=== PATIENT | female | born 1960 | race Caucasian/White ===

== ENCOUNTER 2018-11-05 13:41 | Inpatient (IN) | payer SELFPAY ==
[2018-11-05] VITALS (11 sets, daily range): BP systolic 107–185; BP diastolic 57–96
[~2018-11-05] VITALS: Ht 167.6 cm; Wt 65.1 kg
--- NOTE | 2018-11-05 16:20 | NUR ---
DR VIDAL HERE SPEAKING WITH PTS NEW ORDERS NOTED
--- NOTE | 2018-11-05 16:45 | NUR ---
DR GIL CONSULTED HERE TO SEE PT. JEFFERY ALSO SPEAKING WITH PTS
[2018-11-05 17:52] LABS: CALCIUM 7.5 mg/dL (8.5-10.1); CARBON DIOXIDE 24.1 mmol/L (21.0-32.0); CREATININE - SERUM 1.7 mg/dL (0.6-1.3); POTASSIUM - SERUM 4.1 mmol/L (3.5-5.1)
--- NOTE | 2018-11-05 19:15 | NUR ---
REPORT RECEIVED CARE ASSUMED INITIAL SHIFT ASSESSMENT COMPLETED SEE FLOWSHEET. PT BEING MONITORED PER STANDARD ICU PROTOCOL WITH ALL ALARMS SET, VERIFIED AND AUDIBLE AT NURSES STATION. PT NOTED TO BE SUPPORTED PER MECHANICAL VENTILATION VIA ETT DIPROVAN FOR SEDATION. PT IS TOTAL CARE FOR ALL ADL'S WITH PILLOWS USED FOR SUPPORT, TO RELIEVE PRESSURE, ELEVATE ARMS AND FLOAT HEELS. IVF AND IV TUBING ARE ALL APPROPRIATELY LABELED. NS AT 125ML/HR TURNED TO KVO PER DR. GIL'S PROGRESS NOTE. BED IN LOW POSITION PT IS IN DIRECT VISION OF NURSES STATION.
--- NOTE | 2018-11-05 20:35 | NUR ---
LEAVING UNIT WITH PT VIA BED AND WITH RT AT BEDSIDE FOR CT SCAN. IN WAITING ROOM
--- NOTE | 2018-11-05 20:50 | NUR ---
RETURNED TO ROOM AND RECONNECTED PT TO MONITORS. BROUGHT BACK TO ROOM. EMEGENCY CONTACT INFORMATION OBTAINED AND SECURITY CODE ESTABLISHED.
--- NOTE | 2018-11-05 20:50 | NUR ---
CALLED TO CLARIFY ORDERS THAT PATIENT WAS NOT TO BE ON INSULIN GTT. CLEMENT OBRIEN CALLED BACK AND INFORMED OF PATIENT ANION GAP OF 17.00 AND POSITIVE FOR MODERATE HIGH KETONES. CLEMENT OBRIEN STATED TO KEEP THE ORDER OF HUMULIN R HIGH SLIDING SCALE ORDERED.
--- NOTE | 2018-11-05 22:27 | NUR ---
SPOKE WITH MICAH VAUGHAN FOR DR. VIDAL. CONFIRMED, PT WITH ELEVATED ANION GAP AND MODERATE KETONE-"TO FOLLOW INSULIN SLIDING SCALE" PER MICAH. ALSO DISCUSSED TRENDING ELEVATED BLOOD PRESSURE NOW AT 176/75 REPORTED TO MICAH NEW ORDERS RECEIVED AND REPEATED FOR APRESOLINE 10MG IV Q6 PRN SBP>170. NO OTHER ORDERS
--- NOTE | 2018-11-05 23:00 | NUR ---
OGT INSERTED X 1 ATTEMPT WITH PLACEMENT VERIFIED BY IMMEDIATE RETURN OF COFFEE GROUND SECRETIONS AND AIR BOLUS. PT ALSO WITH OLD BLOOD CLOT FROM MOUTH. OGT SECURED AND PLACED TO LIWS. APPROX 100CC OF RETURN. SEE FLOWSHEET FOR FURTHER REASSESSMENT.
--- NOTE | 2018-11-05 23:53 | NUR ---
SPOKE WITH MICAH VAUGHAN TO NOTIFY OF COFFEE GROUND EMESIS 100CC UPON PLACEMENT OF OGT AND ORAL CLOTS OF BLOOD. NEW ORDERS FOR CBC AND LFTS NOW AND TO CALL IF HGB<11. LAB CALLED AND NOTIFIED OF NEED FOR BLOOD DRAW
[2018-11-06] VITALS (35 sets, daily range): BP systolic 10–174; BP diastolic 53–96; BMI 23.4
[2018-11-06 00:07] LABS: HEMATOCRIT 38.7 % (36.0-48.0); HEMOGLOBIN 13.7 g/dL (12-16); LYMPHOCYTES 5.8 % (15-50); MCH 31.4 pg (26.0-34.0); MCHC 35.4 g/dL (31.0-37.0); MCV 88.6 fL (80.0-100.0); MEAN PLATELET VOLUME 8.8 fL (7.4-10.4); NEUTROPHILS 88.4 % (40-80); PLATELET COUNT 170 10x3/uL (130-400); RBC 4.37 10x6/uL (4.00-5.40); RDW 13.6 % (11.5-14.5); WBC 7.6 10x3/uL (4.8-10.8)
--- NOTE | 2018-11-06 00:30 | NUR ---
LABS REVIEWED NO ACTION NEEDED AT THIS TIME.
[2018-11-06 00:32] LABS: ALBUMIN 2.3 g/dL (3.4-5.0); BILIRUBIN - DIRECT 0.14 mg/dL (0.00-0.30); BILIRUBIN - INDIRECT 0.24 mg/dL (0.00-1.00); BILIRUBIN - TOTAL 0.38 mg/dL (0.2-1.3); PROTEIN - SERUM 5.7 g/dL (6.4-8.2)
--- NOTE | 2018-11-06 03:00 | NUR ---
SHIFT REASSESSMENT COMPLETED SEE FLOWSHEET. NO SIGNIFICANT CHANGES. VSS
[2018-11-06 04:31] LABS: BASOPHILS 0.1 % (0-2); EOSINOPHILS 0 % (0-7); HEMATOCRIT 37.1 % (36.0-48.0); IMMATURE GRANULOCYTES 0.1 % (0-5); LYMPHOCYTES 6.4 % (15-50); MCH 30.7 pg (26.0-34.0); MCV 87.7 fL (80.0-100.0); MEAN PLATELET VOLUME 9.8 fL (7.4-10.4); NEUTROPHILS 86.4 % (40-80); PLATELET COUNT 163 10x3/uL (130-400); RBC 4.23 10x6/uL (4.00-5.40); RDW 13.1 % (11.5-14.5); WBC 7.1 10x3/uL (4.8-10.8)
[2018-11-06 04:49] LABS: ALBUMIN 2.2 g/dL (3.4-5.0); ANION GAP 13.3 mmol/L (8-16); BILIRUBIN - TOTAL 0.36 mg/dL (0.2-1.3); CALCIUM 7.5 mg/dL (8.5-10.1); CARBON DIOXIDE 27.9 mmol/L (21.0-32.0); CREATININE - SERUM 1.5 mg/dL (0.6-1.3); MAGNESIUM - SERUM 1.7 mg/dL (1.8-2.4); PROTEIN - SERUM 5.4 g/dL (6.4-8.2); VANCOMYCIN - RANDOM 8.1 ug/mL (10.0-20.0)
[2018-11-06 04:51] LABS: POTASSIUM - SERUM 3.2 mmol/L (3.5-5.1)
--- NOTE | 2018-11-06 05:00 | NUR ---
MONITORING GLUCOSE CLOSELY SEE POC FLOWSHEET. F/C CARE DONE AND BOTTOM LINENS CHANGED. PT TOLERATED WELL.
--- NOTE | 2018-11-06 09:00 | NUR ---
SEDATION CONTINUE----SEE GRAPHIC
--- NOTE | 2018-11-06 11:00 | NUR ---
WEANING FROM VENT ATTEMPTED-----PROPOFOL TITARTED DOWN TO OFF --PT WILL NOT FOLLOW VERBAL COMMANDS
--- NOTE | 2018-11-06 13:00 | NUR ---
FAMILY AT UPDATE STATUS REPORT GIVEN VIA DR VIDAL
--- NOTE | 2018-11-06 17:00 | NUR ---
SEDATION CONTINUE ----SLIGHT AGITATED CONTINUE---CONTINUE NOT FOLLOWING VERBAL COMMANDS
--- NOTE | 2018-11-06 17:17 | MORECARE ---
CASE MANAGEMENT DISCHARGE SUMMARY PATIENT: WHITNEY JOHNS UNIT: [id number] ADM DATE: 11/05/18 AGE: 58 : 62 SEX: F ROOM/BED: D.2308 AUTHOR: LORIN PATTERSON PHYSICIAN: REFERRING PHYSICIAN: MAHSA VIDAL MD DATE OF SERVICE: 11/06/18 Discharge Plan Patient Name: WHITNEY JOHNS Facility: [facility]:[place] : 1960 Planned Disposition: Anticipated Discharge Date: Discharge Date: Expected LOS: Initial Reviewer: [email or web address] Initial Review Date: 11/05/2018 Generated: 11/06/18 6:17 pm Comments DCP- Discharge Planning Updated by [email or web address]: Ivana Amin on 11/06/18 4:[address] Patient on vent / sedated. No family available at this time.CM will continue to follow and assist as needed with discharge planning / needs. Patient Name: WHITNEY JOHNS Page 66611 at 1717 All edits/amendments must be made on the electronic document DICTATION DATE: 11/06/181715 DIGITAL FORENSICS EXAMINER: DAVID 11/06/181715 RPT#: [id number] DC DATE: STATUS: ADM IN [facility] [address] [place] [address] END OF REPORT
--- NOTE | 2018-11-06 17:57 | NUR ---
SPOUSE CALLED UPDATE STATUS GIVEN
--- NOTE | 2018-11-06 19:00 | NUR ---
REPORT RECEIVED CARE ASSUMED INITIAL SHIFT ASSESSMENT COMPLETED SEE FLOWSHEET. PT REMAINS ON MECHANICAL VENTILATION VIA ETT. DIPROVAN TITRATED FOR SEDATION. MONITORED PER STANDARD ICU PROTOCOL WITH ALL ALARMS SET, VERIFIED AND AUDIBLE AT NURSES STATION. OGT TO LIWS COFFEE GROUND GASTRIC CONTENTS IN TUBING. PT IS TOTAL CARE FOR ALL ADLS. VAP PROTOCOL BEING OBSERVED. DROPLET ISOLATION BEING OBSERVED.
--- NOTE | 2018-11-06 19:11 | NUR ---
SPOKE WITH DR. BARAHONA TO NOTIFY OF CONSULT THAT WAS WRITTEN IN H&P PER DR. VIDAL. DISCUSSED LABS AND ORDERS RECEIVED AND REPEATED TO VERIFY.
--- NOTE | 2018-11-06 19:40 | NUR ---
FSBS 20 REPEAT TEST 21. ORDERS PUT IN FOR STAT LAB AND LAB CALLED TO NOTIFY OF ORDERS. HYPOGLYCEMIC PROTOCOL FOLLOWED PER PROTOCOL. WILL MONITOR PER PROTOCOL
--- NOTE | 2018-11-06 20:30 | NUR ---
RECHECK FSBS AFTER FOLLOWING PROTOCOL TO VERIFY STILL TRENDING UP AND READING OF 57, HYPOGLYCEMIC PROTOCOL AGAIN FOLLOWED
--- NOTE | 2018-11-06 21:00 | NUR ---
NO VISITORS AT THIS TIME
--- NOTE | 2018-11-06 23:00 | NUR ---
PT AGGITATED SITTING UP IN BED LEANING HEAD DOWN AND REACHING FOR ETT. 1:1 WITH PT TO MAINTAIN SAFETY AND DIPROVAN INCREASED FOR EFFECT. FSBS CHECKED 57 RECHECKED TO VERIFY AND 60 HYPOGLYCEMIC PROTOCOL FOLLOWED SHIFT REASSESSMENT COMPLETED SEE FLOWSHEET.
[2018-11-07] VITALS (24 sets, daily range): BP systolic 106–168; BP diastolic 58–92
--- NOTE | 2018-11-07 01:00 | NUR ---
PT MORE CALM AT THIS TIME. TITRATED DIPROVAN FOR EFFECTIVNESS. F/C CARE DONE. VSS
--- NOTE | 2018-11-07 03:00 | NUR ---
SHIFT REASSESSMENT COMPLETED SEE FLOWSHEET.
--- NOTE | 2018-11-07 03:55 | NUR ---
FSBS 201 PT GIVEN PARTIAL DOSE INSULIN TO DUE TO RECENT HYPOGYLCEMIC RESULTS IN PAST 24 HOURS. WILL MONITOR
[2018-11-07 04:18] LABS: BASOPHILS 0.3 % (0-2); EOSINOPHILS 0.2 % (0-7); HEMOGLOBIN 13.4 g/dL (12-16); IMMATURE GRANULOCYTES 0.3 % (0-5); LYMPHOCYTES 17.7 % (15-50); MCH 31.6 pg (26.0-34.0); MCHC 35.3 g/dL (31.0-37.0); MCV 89.6 fL (80.0-100.0); MEAN PLATELET VOLUME 10.2 fL (7.4-10.4); MONOCYTES 4.9 % (2-11); NEUTROPHILS 76.6 % (40-80); RBC 4.24 10x6/uL (4.00-5.40); RDW 13.4 % (11.5-14.5); WBC 5.8 10x3/uL (4.8-10.8)
[2018-11-07 04:25] LABS: PLATELET COUNT 129 10x3/uL (130-400)
[2018-11-07 04:41] LABS: ALBUMIN 1.9 g/dL (3.4-5.0); ANION GAP 12.2 mmol/L (8-16); BILIRUBIN - TOTAL 0.48 mg/dL (0.2-1.3); CALCIUM 7.6 mg/dL (8.5-10.1); CARBON DIOXIDE 28.9 mmol/L (21.0-32.0); CREATININE - SERUM 1.2 mg/dL (0.6-1.3); POTASSIUM - SERUM 3.1 mmol/L (3.5-5.1); PROTEIN - SERUM 5.1 g/dL (6.4-8.2)
[2018-11-07 04:47] LABS: MAGNESIUM - SERUM 2.2 mg/dL (1.8-2.4)
--- NOTE | 2018-11-07 07:00 | NUR ---
ETT SECURE TO VENT. BILATERAL LUNG SOUNDS EQUAL. REPOSITIONED. RIGHT WRIST IV DC'S DUE TO HAND SWELLING. RIGHT AC IV INFUISNG WITH NS KVO FOR IVPB AND KCL RIDER. AND DIPIRIVAN AT 25 MCG/KG/MIN. JUST CUT IN HALF FOR CPAP TRAILS. TAYLOR CATH PATIENT DRAINING LISA URINE, WITH BLOODY STREAKS IN TUBING. DOES MOVE ALL EXTREMITITES TO PAINFUL SITMULI. DOES NOT OBEY COMMANDS. MONITOR ST. HEAD OF BED ELEVATED 30 DEGREES.
--- NOTE | 2018-11-07 09:00 | NUR ---
DIPRIVAN CUT BACK TO 15 MCG/KG/MIN. AWAKES UP EASILY DOES NOT OBEY COMMANDS. SITS UP MOVING ALL EXTERMITIES WITH GOOD STRENGTH. GOOD COUGH REFLEX.
--- NOTE | 2018-11-07 09:45 | NUR ---
DR. GIL HERE SUSANIRVAN TURNED OFF. ON CPAP ON VENT. GOOD RESP. RATE DEEP BREATHS ABOVE 350 TV
--- NOTE | 2018-11-07 10:30 | NUR ---
NO RESP DISTRESS. RESP RATE LESS THAN 30 TV 400-500.
--- NOTE | 2018-11-07 10:40 | NUR ---
EXTUBATED BY RESP. THERAPY. PLACED ON 4 LITERS NC. GOOD COUGH, RESP DEEP AND REGULAR. NO RESP DISTRESS. STILL NOT OBEYING COMMANDS. TURNING SELF FROM SIDE.
--- NOTE | 2018-11-07 10:51 | NUR ---
Nutrition follow-up: Pt just extubated NPO continues Labs reviewed Wt: 146# Pt in isolation for possible flu RDN following.
--- NOTE | 2018-11-07 11:20 | NUR ---
CONSTANTLY LOUDLY SAYING "AWAWAWAW". NOT OBEYING COMMANDS. OCC. WILL MAKE EYE CONTACT BUT NOT CONSISTANTLY. NOT ANSWERING QUESTIONS. TURNING SELF FROM SIDE TO SIDE. PULLING OXYGEN OUT, PULLING ON IV'S. RESTRAINTES REPLACED. DOES NOT ANSWER QUESTIONS. OCC WORDS UNDERSTOOD. MOM, BABY, ETC. PILLOW AROUND PATIENT REPOSITIONED IN BED. HEAD OF BED ELEVATED 30 DEGREES. TAYLOR CATH PATENT. NO RESP DISTRESS
--- NOTE | 2018-11-07 12:00 | NUR ---
FAMILY HERE. PATIENT STILL VERY CONFUSED. RESTLESS MOVING UP AND DOWN IN BED. KICK LEGS OFF BED. FAMILY TALKED WITH DR. GIL. FAMILY STATES THE PATIENT WAS CONFUSED AND RESTLESS WHEN THEY BROUGHT HER INTO HOSPITAL IN [place] AND THEY INTUBATED HER.
--- NOTE | 2018-11-07 15:00 | NUR ---
MORE ALERT, ANSWERS SOME QUESTIONS DENIES BEING IN PAIN. WILL NOT LEAVE OXYGEN ON OR WILL NOT STOP PULLING ON LINES, HAVE TO REMOVE HER HAND, THEN RESTRAIN IT, PATIENT WILL CONTINOUSLY PULL ON LINES AND OXYGEN WHEN NOT RESTRAINTED.MAKES EYE CONTACT, STATES PLEASE HELP BUT WILL NOT TELL YOU WHAT SHE NEEDS HELP WITH. SHAKES HEAD NO WHEN ASKED IF THAT IS HER . NOT SCREAMING OUT. HALDOL DID CALM PATIENT DOWN. TAYLOR PATIENT DRAINING LISA URINE. MONITOR SR.
--- NOTE | 2018-11-07 16:59 | NUR ---
TO CT SCAN DID NOT HOLD HEAD STILL. TRIES SIPS OF WATER, CAN TOLERATE A SMALL SIP. CHOKES IF SHE TAKES A LARGE SIP OF WATER. DR. GIL NOTIFIED. SPEECH EVAL FOR TOMORROW ORDERED.
--- NOTE | 2018-11-07 18:07 | NUR ---
REPLACE PATIENTS ON CHEST. PATIENT PULLING ON ALL LINES THAT SHE CAN REACH. PULLED OXYGEN OFF DESAT TO 85%. REPLACED OXYGEN AND RESTRAINTS ADJUSTED. PULSE OX UP TO 94%. NO DISTRESS.
--- NOTE | 2018-11-07 18:22 | MORECARE ---
CASE MANAGEMENT DISCHARGE SUMMARY PATIENT: WHITNEY JOHNS UNIT: [id number] ADM DATE: 11/05/18 AGE: 58 : 62 SEX: F ROOM/BED: D.2308 AUTHOR: LORIN PATTERSON PHYSICIAN: REFERRING PHYSICIAN: MAHSA VIDAL MD DATE OF SERVICE: 11/07/18 Discharge Plan Patient Name: WHITNEY JOHNS Facility: [facility]:[place] : 1960 Planned Disposition: Home Anticipated Discharge Date: Discharge Date: Expected LOS: Initial Reviewer: [email or web address] Initial Review Date: 11/07/2018 Generated: 11/07/18 7:22 pm Comments DCP- Discharge Planning Updated by [email or web address]: Ivana Amin on 11/06/18 4:[address] Patient on vent / sedated. No family available at this time.CM will continue to follow and assist as needed with discharge planning / needs. DCPIA - Discharge Planning Initial Assessment Updated by [email or web address]: Ivana Amin on 11/07/18 6:17 pm * Is the patient Alert and Oriented? Yes * How many steps to enter\exit or inside your home? 3-6 * PCP NO PCP * Pharmacy [facility] * Preadmission Environment Home with Family * ADLs Independent * Equipment None * List name and contact numbers for known caregivers / representatives who currently or will assist patient after discharge: SANDY VILLAREAL - [facility] - [phone] * Verbal permission to speak to the caregivers and representatives has been obtained from the patient. Yes * Community resources currently utilized None * Additional services required to return to the preadmission environment? No * Can the patient safely return to the preadmission environment? Yes * Has this patient been hospitalized within the prior 30 days at any hospital? No Last DP export: 11/06/18 4:17 pm Patient Name: WHITNEY JOHNS Page 08778 at 1822 All edits/amendments must be made on the electronic document DICTATION DATE: 11/07/181820 EUCLID OPERATOR: DAVID 11/07/181820 RPT#: [id number] DC DATE: STATUS: ADM IN [facility] [address] [place] [address] END OF REPORT
--- NOTE | 2018-11-07 18:31 | MORECARE ---
CASE MANAGEMENT DISCHARGE SUMMARY PATIENT: WHITNEY JOHNS UNIT: [id number] ADM DATE: 11/05/18 AGE: 58 : 62 SEX: F ROOM/BED: D.2308 AUTHOR: LEONARDO,DOC PHYSICIAN: REFERRING PHYSICIAN: MAHSA VIDAL MD DATE OF SERVICE: 11/07/18 Discharge Plan Patient Name: WHITNEY JOHNS Facility: [facility]:[place] : 1960 Planned Disposition: Home Anticipated Discharge Date: Discharge Date: Expected LOS: Initial Reviewer: [email or web address] Initial Review Date: 11/07/2018 Generated: 11/07/18 7:30 pm Comments DCP- Discharge Planning Updated by [email or web address]: Ivana Amin on 11/07/18 5:[address] Patient Name: WHITNEY JOHNS Admission Status: Urgent Accout number: [id number] Admission Date: 11-05-2018 : 1960 Admission Diagnosis:ACUTE RESPIRATORY FAILURE, UNSP W HYPOXIA OR HYPERCAPNI Attending: MAHSA VIDAL Current LOS: 2 Anticipated DC Date: Planned Disposition: Home Primary Insurance: UNINSURED DISCOUNT PLAN Discharge Planning Comments: CM met with patients (Sandy) at patients bedside. Sandy stated that patient lives at home with him. Plans are for her to return home upon discharge. He states she doesn't have any medical equipment in the home or home health services. Sandy states that patient was in hospital last year with same thing. Denies any discharge needs at this time. CM will continue to follow and assist as needed with discharge planning/ needs [employer] Firer/Fireman: Ivana Amin DCP- Discharge Planning Updated by [email or web address]: Ivana Amin on 11/06/18 4:[address] Patient on vent / sedated. No family available at this time.CM will continue to follow and assist as needed with discharge planning / needs. DCPIA - Discharge Planning Initial Assessment Updated by [id number]: Ivana Amin on 11/07/18 6:17 pm * Is the patient Alert and Oriented? Yes * How many steps to enter\exit or inside your home? 3-6 * PCP NO PCP * Pharmacy [facility] * Preadmission Environment Home with Family * ADLs Independent * Equipment None * List name and contact numbers for known caregivers / representatives who currently or will assist patient after discharge: SANDY VILLAREAL - [facility] - [phone] * Verbal permission to speak to the caregivers and representatives has been obtained from the patient. Yes * Community resources currently utilized None * Additional services required to return to the preadmission environment? No * Can the patient safely return to the preadmission environment? Yes * Has this patient been hospitalized within the prior 30 days at any hospital? No Last DP export: 11/07/18 5:22 pm Patient Name: WHITNEY JOHNS Page [id number] at 1831 All edits/amendments must be made on the electronic document DICTATION DATE: 11/07/181829 SALES AND MARKETING PROFESSIONAL: DAVID 11/07/181829 RPT#: [id number] DC DATE: STATUS: ADM IN [facility] [address] [place] [address] END OF REPORT
--- NOTE | 2018-11-07 19:00 | NUR ---
REPORT RECEIVED CARE ASSUMED INITIAL SHIFT ASSESSMENT COMPLETED SEE FLOWSHEET. PT CONFUSED AND RESTLESS. WAS ON 5L N/C BUT HAD REMOVED O2 TUBING OFF OF FACE. SPO2 90%. O2 REPLACED AND TURNED DOWN TO 2L PER RT. PT NOTED TO BE REMOVING EQUIPMENT AND PULLING AT IV LINES AND F/C MUCH SHE COULD REACH. PT WITH BILAT WRIST RESTRAINTS TO PREVENT PULLING OF LINES AND TO MAINTAIN SAFETY OF PT. PT CONTINUES TO BE MONITORED PER STANDARD ICU PROTOCOL WITH ALL ALARMS SET VERIFIED AND AUDIBLE AT NURSE STATION. PT REMAINS IN DROPLET ISOLATION WITH ALL PRECAUTIONS OBSERVED.
--- NOTE | 2018-11-07 20:00 | NUR ---
SISTER, PRIYANKA, CALLED. SECURITY WORD VERIFIED UPDATE GIVEN QUESTIONS.
--- NOTE | 2018-11-07 20:00 | NUR ---
NO VISITORS AT THIS TIME. PT REMAINS AWAKE BUT CONFUSED.
--- NOTE | 2018-11-07 23:00 | NUR ---
SHIFT REASSESSMENT COMPLETED SEE FLOWSHEET. NO SIGNIFICANT CHANGES
[2018-11-08] VITALS (22 sets, daily range): BP systolic 125–176; BP diastolic 63–95; Ht 167.6 cm; Wt 65.1 kg
--- NOTE | 2018-11-08 00:51 | NUR ---
CALL PLACED TO DR. GIL TO NOTIFY OF ONGOING AGGITATION UNABLE TO CONSOLE WITH CONSTANT REDIRECTION. NEW ORDERS RECEIVED, REPEATED AND VERIFIED
--- NOTE | 2018-11-08 01:45 | NUR ---
PT MUCH CALMER NOW ALTHOUGH REMAINS CONFUSED AND RESTLESS.
--- NOTE | 2018-11-08 02:02 | NUR ---
RT AT BEDSIDE DOING TREATMENT. PT ALERT CONVERSING WITH RT ALTHOUGH REMAINS CONFUSED
--- NOTE | 2018-11-08 03:00 | NUR ---
SHIFT REASSESSMENT COMPLETED SEE FLOWSHEET. PT SPEECH CLEAR BUT CONFUSED. NO SIGNIFICANT CHANGES
[2018-11-08 04:36] LABS: BASOPHILS 0.6 % (0-2); EOSINOPHILS 1.2 % (0-7); HEMATOCRIT 40.3 % (36.0-48.0); HEMOGLOBIN 13.8 g/dL (12-16); IMMATURE GRANULOCYTES 0.5 % (0-5); LYMPHOCYTES 19.5 % (15-50); MCH 30.8 pg (26.0-34.0); MCHC 34.2 g/dL (31.0-37.0); MEAN PLATELET VOLUME 10.1 fL (7.4-10.4); MONOCYTES 6.4 % (2-11); NEUTROPHILS 71.8 % (40-80); PLATELET COUNT 135 10x3/uL (130-400); RBC 4.48 10x6/uL (4.00-5.40); RDW 13.2 % (11.5-14.5); WBC 6.6 10x3/uL (4.8-10.8)
[2018-11-08 05:06] LABS: ANION GAP 19.2 mmol/L (8-16); BILIRUBIN - TOTAL 0.66 mg/dL (0.2-1.3); CALCIUM 7.9 mg/dL (8.5-10.1); CREATININE - SERUM 1.1 mg/dL (0.6-1.3); POTASSIUM - SERUM 3.2 mmol/L (3.5-5.1); PROTEIN - SERUM 5.9 g/dL (6.4-8.2)
[2018-11-08 05:23] LABS: MAGNESIUM - SERUM 1.6 mg/dL (1.8-2.4)
[2018-11-08 05:25] LABS: ALBUMIN 2.4 g/dL (3.4-5.0); PHOSPHOROUS 1.1 mg/dL (2.5-4.9)
--- NOTE | 2018-11-08 05:52 | NUR ---
CALL RECEIVED FROM SISTER MATHEW. UPDATE GIVEN QUESIONS ANSWERED
--- NOTE | 2018-11-08 09:30 | NUR ---
Nutrition follow-up: Pt NPO until seen by speech pathologist; coughing after sips of water noted Remains confused per nursing Labs reviewed Wt: 142# Remains in isolation for FLU A Will need nutrition support started if po diet unable to start today. RDN following.
[2018-11-08 13:59] LABS: POTASSIUM - SERUM 3.3 mmol/L (3.5-5.1)
[2018-11-08 14:00] LABS: MAGNESIUM - SERUM 2.1 mg/dL (1.8-2.4); PHOSPHOROUS 2.7 mg/dL (2.5-4.9)
--- NOTE | 2018-11-08 18:40 | NUR ---
0700 ASLEEP EASILY AWAKENS NO DISTRESS NOTED ASSESSMENT COMPLETEE
--- NOTE | 2018-11-08 18:41 | NUR ---
0900 REMAINS NPO REPOSITIONES IN BDED
--- NOTE | 2018-11-08 18:41 | NUR ---
1100 WAITING ON SPEECH THERAPY FOR SWALLOW EVAL
--- NOTE | 2018-11-08 18:42 | NUR ---
1300 CLEARED BY SPEECH THERAPY FOR PUREED REGULAR DIET AND THIN LIQUIDS
--- NOTE | 2018-11-08 18:44 | NUR ---
1700 SON AT BEDSIDE PT MODRE ALERT THAN THIS AM
--- NOTE | 2018-11-08 18:44 | NUR ---
1500 SPOUSE AT BEDSIDE EMOTIONAL SUPPORT GIVEN
--- NOTE | 2018-11-08 18:45 | NUR ---
1800 PULLED OUT IV PROBABLY ON ACCIDENT
--- NOTE | 2018-11-08 19:10 | NUR ---
Received patient resting in bed with eyes closed, assessment completed per flowsheet. Patient confused/withdrawnsoft spoken but responds to instructions. See flowsheet for details, all VSS and will continue to monitor.
--- NOTE | 2018-11-08 21:00 | NUR ---
Patient resting in bed with at bedside, discussed current condition/treatment plan with all questions answered to satisfaction. HS meds given without difficulty, no further needs at this time and will continue to monitor.
--- NOTE | 2018-11-08 23:00 | NUR ---
Reassessment completed per flowsheet, no changes from previous assessment. Patient incontinent of bowel, small dark liquid stool noted. AO x2, follows instructions. Coarse lung sounds bilateral upper and mid with diminished lower. All pulses palpable with cap refill < 3 sec, skin warm/dry. Denies pain or other needs at this time, see flowsheet for details. All VSS and will continue to monitor.
[2018-11-09] VITALS (14 sets, daily range): BP systolic 99–182; BP diastolic 46–75
--- NOTE | 2018-11-09 01:15 | NUR ---
Patient resting in bed with eyes open, denies pain or other needs at this time. Patient SBP > 150, PRN Metoprolol given as ordered. Patient appears restless/agitated with O2 sat 96%, PRN Haldol given as ordered. No further needs at this time, will continue to monitor.
--- NOTE | 2018-11-09 02:57 | NUR ---
Reassessment completed per flowsheet, no changes from previous assessment. All pulses palpable with skin warm/dry, denies pain or other needs at this time. See flowsheet for details, all VSS and will continue to monitor.
[2018-11-09 03:22] LABS: BASOPHILS 0.3 % (0-2); EOSINOPHILS 5.7 % (0-7); HEMATOCRIT 38.7 % (36.0-48.0); HEMOGLOBIN 13.2 g/dL (12-16); IMMATURE GRANULOCYTES 0.7 % (0-5); LYMPHOCYTES 25.6 % (15-50); MCH 30.9 pg (26.0-34.0); MCHC 34.1 g/dL (31.0-37.0); MCV 90.6 fL (80.0-100.0); MEAN PLATELET VOLUME 9.5 fL (7.4-10.4); MONOCYTES 7.3 % (2-11); NEUTROPHILS 60.4 % (40-80); PLATELET COUNT 154 10x3/uL (130-400); RBC 4.27 10x6/uL (4.00-5.40); RDW 12.9 % (11.5-14.5); WBC 5.7 10x3/uL (4.8-10.8)
[2018-11-09 03:35] LABS: ALBUMIN 2.2 g/dL (3.4-5.0); BILIRUBIN - TOTAL 0.56 mg/dL (0.2-1.3); CALCIUM 7.8 mg/dL (8.5-10.1); CARBON DIOXIDE 28.4 mmol/L (21.0-32.0); CREATININE - SERUM 0.9 mg/dL (0.6-1.3); MAGNESIUM - SERUM 1.9 mg/dL (1.8-2.4); PHOSPHOROUS 2.8 mg/dL (2.5-4.9); POTASSIUM - SERUM 3.4 mmol/L (3.5-5.1); PROTEIN - SERUM 5.7 g/dL (6.4-8.2)
[2018-11-09] MEDS ORDERED: NOVOLIN 70/30 110 ML SC (11:29)
--- NOTE | 2018-11-09 20:15 | NUR ---
EVENING ROUNDS COMPLETED. REPORT RECEIVED. PT SITTING UP IN BED WITH EYES OPEN, RR EVEN AND UNLABORED. BED IN LOW POSITION. AT BEDSIDE. DROPLET PRECAUITION STICKERS PLACED ON OUTSIDE OF DOOR FOR PT CURRENT ISOLATION STATUS. INTRODUCED SELF TO PT. PT DENIES FURTHER NEEDS. CALL LIGHT IS IN REACH. WILL CTM.
--- NOTE | 2018-11-09 23:45 | NUR ---
PT SITTING UP IN BED WITH EYES OPEN, IV ABX INFUSING ORDERED. AT BEDSIDE. NO S/S OF DISTRESS NOTED. DENIES FURTHER NEEDS. BED IN LOW POSITION. CALL LIGHT IN REACH. WILL CTM.
--- NOTE | 2018-11-09 23:58 | NUR ---
PT RESTING WITH EYES CLOSED. RESP EVEN AND REGULAR. SR UP X2, CALL LIGHT WITHIN REACH.
[2018-11-10 00:27] VITALS: BP 150/59
--- NOTE | 2018-11-10 03:32 | NUR ---
TAYLOR CATHETER REMOVED PT NO LONGER MEETS CRITERIA AND HAS ABILITY TO AMBULATE TO TOILET WITH MINIMAL ASSISTANCE. 10 MLS NORMAL SALINE REMOVED FROM STAT LOCK TO DEFLATE BALLOON PRIOR TO REMOVAL OF CATHETER. PT VOIDED 200 MLS OF CONCENTRATED URINE AFTER REMOVAL OF TAYLOR CATHETER.
[2018-11-10 05:02] VITALS: BP 132/58
--- NOTE | 2018-11-10 05:03 | NUR ---
PT SITTING UP IN BED WITH EYES OPEN, RR EVEN AND UNLABORED. 235 BLOOD SUGAR TREATED ORDERED PER SLIDING SCALE. NO S/S OF DISTRESS NOTED, CALL LIGHT IN REACH. WILL CTM.
[2018-11-10 05:25] LABS: ALBUMIN 2.3 g/dL (3.4-5.0); ANION GAP 17.1 mmol/L (8-16); BILIRUBIN - TOTAL 0.5 mg/dL (0.2-1.3); CALCIUM 8.2 mg/dL (8.5-10.1); CARBON DIOXIDE 24.7 mmol/L (21.0-32.0); CREATININE - SERUM 0.9 mg/dL (0.6-1.3); MAGNESIUM - SERUM 1.6 mg/dL (1.8-2.4); POTASSIUM - SERUM 3.8 mmol/L (3.5-5.1); PROTEIN - SERUM 6.1 g/dL (6.4-8.2)
[2018-11-10 05:54] LABS: BASOPHILS 0.5 % (0-2); EOSINOPHILS 4.8 % (0-7); HEMATOCRIT 38.1 % (36.0-48.0); HEMOGLOBIN 12.8 g/dL (12-16); IMMATURE GRANULOCYTES 1.3 % (0-5); MCH 30.9 pg (26.0-34.0); MCHC 33.6 g/dL (31.0-37.0); MEAN PLATELET VOLUME 9.8 fL (7.4-10.4); MONOCYTES 8.8 % (2-11); NEUTROPHILS 65.6 % (40-80); RBC 4.14 10x6/uL (4.00-5.40); RDW 12.9 % (11.5-14.5); WBC 6.3 10x3/uL (4.8-10.8)
[2018-11-10 05:55] LABS: PLATELET COUNT 212 10x3/uL (130-400)
[2018-11-10 07:33] VITALS: BP 130/57
--- NOTE | 2018-11-10 08:00 | NUR ---
AM ROUNDS COMPLETED. VSS, WITH O2SAT AT 87. PLACED PT NC ON PT 2L. O2. FAMILY AT BEDSIDE. PT BLOOD SUGAR. 240, 4UNIT RGL INSULIN GIVEN. PT DENIES ANY FURTHER NEEDS AT THIS TIME. WILL CPOC.
[2018-11-10 11:37] VITALS: BP 130/60
--- NOTE | 2018-11-10 13:40 | NUR ---
RESTING QUIETLY NAD NOTED
--- NOTE | 2018-11-10 19:08 | NUR ---
READ DC INSTRUCTION TO PT AND . PT VERBALIZED UNDERSTANDING. ALL PT BELONGINGS SENT HOME WITH PT AND FAMILY MEMBER. PT IV TAKEN OUT. PT TOLERATED WELL. PT WHEELED OUT BY . PT DISCHARGED.
--- NOTE | 2018-11-12 11:31 | MORECARE ---
CASE MANAGEMENT DISCHARGE SUMMARY PATIENT: WHITNEY JOHNS UNIT: [id number] ADM DATE: 11/05/18 AGE: 58 : 62 SEX: F ROOM/BED: D.8783 AUTHOR: LEONARDO,DOC PHYSICIAN: REFERRING PHYSICIAN: MAHSA VIDAL MD DATE OF SERVICE: 11/12/18 Discharge Plan Patient Name: WHITNEY JOHNS Facility: [facility]:[place] : 1960 Planned Disposition: Home Anticipated Discharge Date: 11/10/18 Discharge Date: 11/10/2018 Expected LOS: 5 Initial Reviewer: [email or web address] Initial Review Date: 11/07/2018 Generated: 11/12/18 12:31 pm Comments DCP- Discharge Planning Updated by [email or web address]: Ivana Aimn on 11/07/18 5:[address] Patient Name: WHITNEY JOHNS Admission Status: Urgent Accout number: [id number] Admission Date: 11-05-2018 : 1960 Admission Diagnosis:ACUTE RESPIRATORY FAILURE, UNSP W HYPOXIA OR HYPERCAPNI Attending: MAHSA VIDAL Current LOS: 2 Anticipated DC Date: Planned Disposition: Home Primary Insurance: UNINSURED DISCOUNT PLAN Discharge Planning Comments: CM met with patients (Sandy) at patients bedside. Sandy stated that patient lives at home with him. Plans are for her to return home upon discharge. He states she doesn't have any medical equipment in the home or home health services. Sandy states that patient was in hospital last year with same thing. Denies any discharge needs at this time. CM will continue to follow and assist as needed with discharge planning/ needs Screen Cleaner: Ivana Amin DCP- Discharge Planning Updated by [email or web address]: Ivana Amin on 11/06/18 4:[address] Patient on vent / sedated. No family available at this time.CM will continue to follow and assist as needed with discharge planning / needs. DCPIA - Discharge Planning Initial Assessment Updated by [email or web address]: Ivana Amin on 11/07/18 6:17 pm * Is the patient Alert and Oriented? Yes * How many steps to enter\exit or inside your home? 3-6 * PCP NO PCP * Pharmacy [facility] * Preadmission Environment Home with Family * ADLs Independent * Equipment None * List name and contact numbers for known caregivers / representatives who currently or will assist patient after discharge: SANDY VILLAREAL - [facility] - [phone] * Verbal permission to speak to the caregivers and representatives has been obtained from the patient. Yes * Community resources currently utilized None * Additional services required to return to the preadmission environment? No * Can the patient safely return to the preadmission environment? Yes * Has this patient been hospitalized within the prior 30 days at any hospital? No Last DP export: 11/07/18 5:31 pm Patient Name: WHITNEY JOHNS Page [id number] at 1131 All edits/amendments must be made on the electronic document DICTATION DATE: 11/12/18 1130 [place] ATTENDANT: DAVID 11/12/18 1130 RPT#: [id number] DC DATE:11/10/18 STATUS: DIS IN [facility] [address] [place] [address] END OF REPORT
== END 2018-11-10 19:10 | disposition home or self-care (01) | DRG 208 ==
LOC: D.ICU 13:41 → D.M2 11-09 17:39
PROVIDERS: Internal Medicine Nephrology; Internal Medicine Pulmonary Disease; ADMIT Family Medicine
PROC: 5A1945Z Respiratory Ventilation, 24-96 Consecutive Hours (ICD-10-PCS; principal; 2018-11-05)
DX: J96.01 Acute respiratory failure with hypoxia (principal); E11.10 Type 2 diabetes mellitus with ketoacidosis without coma; G93.41 Metabolic encephalopathy; N17.0 Acute kidney failure with tubular necrosis; J10.00 Influenza due to other identified influenza virus with unspecified type of pneumonia; F17.203 Nicotine dependence unspecified, with withdrawal; J44.0 Chronic obstructive pulmonary disease with (acute) lower respiratory infection; E11.65 Type 2 diabetes mellitus with hyperglycemia; R91.8 Other nonspecific abnormal finding of lung field; E83.42 Hypomagnesemia; E87.6 Hypokalemia

== ENCOUNTER 2018-12-21 07:42 | Outpatient (CLI) | payer SELFPAY ==
[~2018-12-21] VITALS: Ht 149.9 cm; Wt 61.4 kg
[~2018-12-21 07:42] MED LIST: NOVOLIN 70/30 110 ML SC
[2018-12-21 08:29] LABS: BASOPHILS 0.7 % (0-2); HEMATOCRIT 40.9 % (36.0-48.0); HEMOGLOBIN 13.6 g/dL (12-16); IMMATURE GRANULOCYTES 0.2 % (0-5); LYMPHOCYTES 22.8 % (15-50); MCH 30.9 pg (26.0-34.0); MCHC 33.3 g/dL (31.0-37.0); MONOCYTES 5.1 % (2-11); NEUTROPHILS 67.2 % (40-80); RDW 13.1 % (11.5-14.5)
[2018-12-21 08:30] LABS: PLATELET COUNT 279 10x3/uL (130-400)
[2018-12-21] MEDS ORDERED: CENTRUM SILVER1 EAC3 PO (08:35)
[2018-12-21 08:45] VITALS: BP 130/58; Ht 149.9 cm; Wt 61.4 kg
[2018-12-21 08:49] LABS: INR 0.97 (0.85-1.17); PROTIME 12.4 SECONDS (11.6-15.0)
[2018-12-21 08:51] LABS: CALCIUM 8.8 mg/dL (8.5-10.1); CARBON DIOXIDE 31.5 mmol/L (21.0-32.0); POTASSIUM - SERUM 4.5 mmol/L (3.5-5.1)
[2018-12-21 09:25] LABS: APTT 29.8 SECONDS (22.8-39.4)
--- NOTE | 2018-12-21 13:27 | NUR ---
CHEST X-RAY TAKEN AT THIS TIME.
--- NOTE | 2018-12-21 14:28 | NUR ---
DC INSTRUCTIONS GIVEN TO PT/FAMILY. STATE UNDERSTANDING. DC'D IV CATH FULLY INTACT. VSS NAD NOTED
--- NOTE | 2018-12-21 14:55 | NUR ---
PT LEFT UNIT VIA WC AT 1455
== END 2018-12-21 14:55 | disposition home or self-care (01) ==
LOC: D.SP 07:42 → D.CT 10:00 → D.SP 14:55
PROVIDERS: ATTEND Radiology Diagnostic Radiology
DX: J85.0 Gangrene and necrosis of lung (principal); Z01.812 Encounter for preprocedural laboratory examination